=== PATIENT | male | born 1985 | race Caucasian/White ===

== ENCOUNTER 2021-07-17 10:23 | Emergency (ER) | payer MEDICAID ==
[~2021-07-17] VITALS: Ht 180.3 cm; Wt 105.2 kg
--- NOTE | 2021-07-17 10:50 | NUR ---
Placed in room 3 . Placed on monitoring manager, blood pressure machine and pulse oximeter. To gown for exam. Side rails up. Report given to Howie.
[2021-07-17 10:53] VITALS: BP_SYST 176
--- NOTE | 2021-07-17 11:25 | NUR ---
ER at bedside examining patient.
--- NOTE | 2021-07-17 11:51 | NUR ---
# 20 gauge angiocath placed to rac. Use of asceptic technique. Opsite placed over site. Blood return noted. Blood for lab drawn from site. Flushed with 10 cc of normal saline. No evidence of infiltration noted. Patient tolerated well.
--- NOTE | 2021-07-17 11:54 | NUR ---
xray at bedside
[2021-07-17 11:58] LABS: BASOPHILS # (AUTO) 0.1 K/uL (0.0-0.2); BASOPHILS % (AUTO) 0.8 % (0.0-2.0); EOSINOPHILS % (AUTO) 0.2 % (0.0-4.0); HEMATOCRIT 43.5 % (36-54); LYMPHOCYTES # (AUTO) 1.6 K/uL (1.0-5.5); MEAN CORPUSCULAR HEMOGLOBIN 31 pg (27-31); MEAN CORPUSCULAR HGB CONC 35 % (32-36); MEAN CORPUSCULAR VOLUME 89 fL (79.0-98.0); MONOCYTES # (AUTO) 0.7 K/uL (0.0-1.0); PLATELET COUNT (AUTO) 268 K/uL (130-430); RED BLOOD CELL COUNT(AUTO) 4.91 MIL/uL (4.2-6.2); RED CELL DISTRIBUTION WIDTH 12.9 % (9.0-15.0); WHITE BLOOD COUNT (AUTO) 11.3 K/uL (4.8-10.8)
[2021-07-17 12:02] LABS: CALCIUM 9.9 mg/dL (8.4-11.0); CREATININE 0.93 mg/dL (0.55-1.30)
--- NOTE | 2021-07-17 12:15 | NUR ---
Pt resting in bed playing on cell phone. No complaints of distress noted.
[2021-07-17 14:33] VITALS: BP_SYST 154
--- NOTE | 2021-07-17 14:33 | NUR ---
Patient given written and verbal discharge instructions and verbalizes understanding. ER MD discussed with patient the results and treatment provided. Patient in stable condition. ID arm band removed. IV catheter removed intact and dressing applied, no active bleeding. Patient educated on pain management and to follow up with PMD. Pain Scale 0. Opportunity for questions provided and answered. Medication side effect fact sheet provided.
== END 2021-07-17 14:33 | disposition home or self-care (01) ==
LOC: SED 10:23
DX: R06.02 Shortness of breath (principal); I10 Essential (primary) hypertension; Z95.0 Presence of cardiac pacemaker
CPT/HCPCS: 36415; 71045; 80048; 83735; 85025; 93005; 99285